=== PATIENT | female | born 1980 | race African-American/Black ===

== ENCOUNTER 2016-10-17 05:43 | Day surgery (SDC) | payer OTHER ==
[2016-10-11 11:45] LABS: BASOPHILS 0.4 %; BASOPHILS ABSOLUTE 0.02 10/3/uL (0.0-0.16); EOSINOPHILS 2.8 %; EOSINOPHILS ABSOLUTE 0.15 10/3/uL (0.0-0.53); HEMATOCRIT 32.3 % (36.0-48.0); HEMOGLOBIN 11.4 g/dL (12.0-16.0); IMMATURE GRANULOCYTES 0.2 %; IMMATURE GRANULOCYTES ABSOLUTE 0.01 10/3/uL (0.0-0.11); LYMPHOCYTES 36.7 %; LYMPHOCYTES ABSOLUTE 1.95 10/3/uL (0.67-4.30); MANUAL DIFF NO %; MEAN CORPUS HGB CONC 35.3 g/dL (32.0-36.0); MEAN CORPUSCULAR HEMOGLOB 28.4 pg (26.0-34.0); MEAN CORPUSCULAR VOLUME 80.3 fL (80-100); MEAN PLATELET VOLUME 9.6 fL (9.2-13.0); MONOCYTES 10.5 %; MONOCYTES ABSOLUTE 0.56 10/3/uL (0.21-1.20); NEUTROPHILS 49.4 %; NEUTROPHILS ABSOLUTE 2.62 10/3/uL (2.02-8.40); PLATELET COUNT 323 10/3/uL (150-400); RBC DISTRIBUTION WIDTH 16.8 % (12.0-16.0); RED CELL COUNT 4.02 10/6/uL (4.0-5.6); WHITE BLOOD CELLS 5.3 10/3/uL (4.5-10.5)
--- NOTE | ~2016-10-17 | OP ---
Record Of Operation [facility] [address] [place]. [address] NAME: TATIANA JENSEN : 76 STATUS : [facility]#: [id number] AGE: 35 ADM/REG DATE : 10/17/16 MR#: [id number] REPORT SERV DATE: 10/17/16 DICTATED BY: PATIENCE ESTRADA DATE: 10/17/16 REPORT STATUS : Draft TRANSCRIBED BY: MODL DATE: 10/17/16 DATE OF PROCEDURE: 10/17/2016 PREOPERATIVE DIAGNOSIS: Cholelithiasis. POSTOPERATIVE DIAGNOSIS: Cholelithiasis plus acute on chronic cholecystitis. PROCEDURE PERFORMED: Laparoscopic cholecystectomy. SURGEON: Patience Estrada M.D. ANESTHESIA: General. ESTIMATED BLOOD LOSS: Minimal. SPECIMENS REMOVED: One gallbladder. BRIEF HISTORY: Ms. Jensen is a 35-year-old female who presents with recurrent bouts of epigastric and right upper quadrant abdominal pain. Imaging confirmed presence of large gallstones and she presents today for cholecystectomy. FINDINGS AT THE TIME OF PROCEDURE: Ms. Jensen's gallbladder was chronically inflamed, contained numerous large gallstones and features suggestive of acute and chronic cholecystitis. Limited examination of remainder of her liver, stomach, small and large bowel revealed no other obvious abnormalities. DETAILS: Following informed consent, the patient was taken to the operating room and placed supine on the OR table. After successful induction of general endotracheal anesthesia, her abdomen was prepped and draped in usual sterile fashion. An umbilical skin incision was made and skin hooks were used to elevate the skin edges and anterior rectus fascia. There was a small umbilical hernia defect, and we were able to use this as a portal of entry into the abdominal cavity. A non-bladed 5 mm trocar was then inserted through this orifice and connected to insufflation tubing, and the peritoneal cavity was insufflated with carbon dioxide to a resting pressure of 15 mmHg. A 5 mm laparoscope was then introduced. The underlying bowel and vascular structures were carefully inspected and noted to be free from injury from initial trocar insertion. Three additional trocars were placed under direct visualization, a 10 mm subxiphoid epigastric trocar followed by two 5 mm trocars placed in the right upper quadrant. The gallbladder was grasped at its fundus and retracted in lateral and cephalad direction toward the patient's right shoulder blade. The infundibulum of the gallbladder was grasped and retracted inferiorly and laterally toward the patient's right anterior superior iliac spine. Cystic duct and cystic artery were dissected free from the underlying fatty peritoneal structures and once a critical view of safety was obtained and both these structures were seen to clearly transverse into the infundibulum of the gallbladder, they were both triply clipped and ligated, and divided with scissors. The gallbladder was then dissected free from the gallbladder fossa using blunt dissection and cautery. It was placed inside an endoscopic retrieval pouch and removed from the 10 mm Record Of Operation [address] [id number] NAME: TATIANA JENSEN : 76 STATUS : [facility] PAT#: [id number] AGE: 35 ADM/REG DATE : 10/17/16 MR#: [id number] REPORT SERV DATE: 10/17/16 DICTATED BY: PATIENCE ESTRADA DATE: 10/17/16 REPORT STATUS : Draft TRANSCRIBED BY: MODRichard DATE: 10/17/16 trocar site, intact, and without incident. Gallbladder fossa was copiously irrigated. Hemostasis was secured with cautery and there was no evidence of bile leakage from the gallbladder fossa or cystic duct stump. The two 5 mm trocars were removed followed by the 10 mm subxiphoid trocar. The sites were observed. Hemostasis was found to be secured. The peritoneal cavity was desufflated. Laparoscope was removed. Fascia at the 10 mm umbilical trocars were approximated using 0 Vicryl suture. Skin edges of all four incisions were approximated using 4-0 Monocryl subcuticular suture and Dermabond. At the completion of the case, all sponge and needle counts were correct. The patient was extubated and transferred to recovery room in satisfactory condition, having suffered no apparent perioperative complications. RUPESH/KIMBER Patience Estrada M.D. / [id number] CC: Patience Estrada M.D.
[~2016-10-17 05:43] MED LIST: *DENIES; INHALER
[2016-10-17 06:28] LABS: A/G RATIO 0.8 (0.7-1.9); ALBUMIN 3.4 G/DL (3.5-5.0); ALKALINE PHOSPHATASE 58 U/L (45-117); BUN (BLOOD UREA NITROGEN) 14 MG/DL (6-23); CHLORIDE, SERUM 108 MMOL/L (96-112); CO2 (CARBON DIOXIDE) 26 MMOL/L (24-34); CREATININE 0.94 MG/DL (0.55-1.02); GFR AFRICAN AMERICAN 90 ML/MIN (>=60); GFR NON AFRICAN AMERICAN 78 ML/MIN (>=60); GLOBULIN 4.3 G/DL (2.5-4.1); GLUCOSE, SERUM 97 MG/DL (60-99); POTASSIUM, SERUM 3.5 MMOL/L (3.5-5.3); SGOT(AST) 15 U/L (5-40); SGPT(ALT) 19 U/L (5-65); SODIUM, SERUM 141 MMOL/L (135-148); TOTAL BILIRUBIN 0.4 MG/DL (0-1.2); TOTAL PROTEIN 7.7 G/DL (6.0-8.5)
== END 2016-10-17 13:02 | disposition home or self-care (01) ==
LOC: SDC 05:43
PROVIDERS: Surgery
PROC: 0FT44ZZ Resection of Gallbladder, Percutaneous Endoscopic Approach (ICD-10-PCS; principal; 2016-10-17 07:00)
DX: K80.10 Calculus of gallbladder with chronic cholecystitis without obstruction (principal); E66.9 Obesity, unspecified; Z68.42 Body mass index [BMI] 45.0-49.9, adult; J45.909 Unspecified asthma, uncomplicated; Z90.710 Acquired absence of both cervix and uterus; D64.9 Anemia, unspecified; G43.909 Migraine, unspecified, not intractable, without status migrainosus; Z87.891 Personal history of nicotine dependence; Z98.890 Other specified postprocedural states
CPT/HCPCS: 80053; 85025; 88304; A9270-GY; J0690; J1170; J2250; J2405; J2710; J3010; Q9967